=== PATIENT | female | born 1965 | race American Indian/Alaskan Native ===

== ENCOUNTER 2018-02-19 10:18 | Emergency (ER) | payer OTHER ==
[~2018-02-19] VITALS: Ht 160 cm; Wt 127.0 kg
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
--- OUTSIDE RECORDS SUMMARY | ~2018-02-19 | XMS | Clinical Summary ---
Demographics + + + | Address | [address] [place] [address] Rd | | | [place] [address] | + + + | Home Phone | | + + + | Preferred Language | Unknown | + + + | Marital Status | Single | + + + | Presybeterian Affiliation | 1041 | + + + | Race | Unknown | + + + | Ethnic Group | Unknown | + + + Author + + + | Author | [facility] | | | and Abilioana | + + + | Organization | [facility] | | | and Abilioana | + + + | Address | Unknown | + + + | Phone | Unavailable | + + + Support + + + + + | Name | Relationship | Address | Phone | + + + + + | Carlos Pacheco | ECON | [id number] [facility] | | | | | [place] | | | | | [address] | | + + + + + Care Team Providers + +------+ + | Care Mold Shop Supervisor Name | Role | Phone | + [...] Lisbeth | | | | | | /[id number] | | | | | | | | 1 | + +--------+--------+ +--------+--------+--------+ | Imp Hip Fem Hd Bolx Mns3 28mm | Generi | Left: | BIOMET - | | 06/25/ | 12-115 | | - [id number]: Qty: 1 | c | Hip | BIOM | | 2026 | 109 / | | on 12/07/2016 by Don, | | | | | | /[id number] | | Romain Bob MD | | [...] | | | | | | | /[id number] | | | | | | | | 7 | + +--------+--------+ +--------+--------+--------+ | Imp Stem Std Amis 04/28 | | Right: | [employer] | | 06/03/ | 01.18. | | Sz3 - [id number]: | | Hip | INC - MDTA | | 2020 | 133 / | | Qty: 1 on 10/21/2015 by | | | | | | /[id number] | | Romain Ochoa MD | | | | | | 3 | + +--------+--------+ +--------+--------+--------+ | Imp Hip Lnr Dbl Mob Hx 28x50 | | Right: | [employer] | | 05/24/ | 01.26. | | - [id number]: Qty: 1 | | Hip | INC - MDTA | | 2020 | 2850MH | | on 10/21/2015 by Don, | | | | | | C / | | Romain Bob MD | | | | | | /[id number] | | | | | | | | 7 | + +--------+--------+ +--------+--------+--------+ | Imp Hip Fem Hd Ceram 28mm Szs | | Right: | [employer] | | 07/20/ | 06.13. | | - [id number]: Qty: 1 | | Hip | INC - MDTA | | 2020 | 201 / | | on 10/21/2015 by Don, | | | | | | /[id number] | | Romain Bob MD | | | | | | 0 | + +--------+--------+ +--------+--------+--------+ | Liner Dmd Acetabular Shell | | | [employer] | | 04/05/ | [id number] | | Implanted: Qty: 1 on | | | INC - MDTA | | 2020 | 8MB / | | 12/07/2016 by Romain Ochoa | | | | | | /[id number] | | MD Lisbeth | | | | | | 9 | + +--------+--------+ +--------+--------+--------+ | Standard Femoral Stem Full | | Left: | BIOMET | | 10/25/ | [id number] | | Proximal Profile Porous | | Hip | ORTHOPEDICS | | 2026 | / | | Plasma Uncemented Implanted: | | | LLC- [id number] | | | /[id number] | | Qty: 1 on 12/07/2016 by [...] +---------+ | [place]ID [place] | MEDICA | [id number] | Medica | [phone] | | | [place] | | id | [id number] | | | | PLUS | | | | | + +--------+ +--------+ +---------+ | [facility] | IHS | [id number] | Indemn | | | | SERVICE [...] | Self | [birth year] | Work: | [address] | | [place] | [place] | | 1964 | [phone] | [place] | | | [place]anda | | | [phone] Home: | [address] | | | | | | | | | | | | [phone] | | | | | | | [phone] | | + +--------+ +--------+ + + | ERICA CARRILLO | Third | Self | [birth year] | Home: | [address] | | | Libertarian | | 1964 | +- | [place], [place] | | | [place] | | | [address] | [address] | | | ity | | | | | + +--------+ +--------+ + + | [id number] | 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
[~2018-02-19 10:18] MED LIST: ALBUTEROL SULF8.5 GM INH; CYCLOBENZAPRINE5 MG PO; DIAZEPAM5 MG PO; GABAPENTIN300 MG PO; HYDROCODON-ACE1 EAC8 PO; NAPROXEN375 MG PO; OMEPRAZOLE20 MG PO
[2018-02-19] MEDS ORDERED: PHENTERMINE H37.5 MG PO (10:33)
== END 2018-02-19 14:31 | disposition home or self-care (01) ==
LOC: ED 10:18
DX: R10.9 Unspecified abdominal pain (principal); M54.5 Low back pain; J45.909 Unspecified asthma, uncomplicated; Z88.1 Allergy status to other antibiotic agents; Z88.8 Allergy status to other drugs, medicaments and biological substances; Z88.5 Allergy status to narcotic agent; Z79.899 Other long term (current) drug therapy; Z79.891 Long term (current) use of opiate analgesic
CPT/HCPCS: 72100; 72110; 72170; 80053; 81001; 85025; 96374; 99283; J1885

== ENCOUNTER 2020-06-29 10:24 | Emergency (ER) | payer OTHER ==
[~2020-06-29] VITALS: Ht 160 cm; Wt 127.0 kg
[~2020-06-29 10:24] MED LIST changes: +PHENTERMINE H37.5 MG PO
--- OUTSIDE RECORDS SUMMARY | 2020-06-29 10:30 | XMS ---
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 Jimenez has no Care Guidelines for this patient. Juany VISIT COUNT (12 MO.) 1 [facility] TOTAL 1 NOTE: Visits indicate total known visits. ED/C VISIT TRACKING (12 MO.) 06/29/2020 10:27 [facility] [place] TYPE: Emergency COMPLAINT: - LEFT ARM INJURY INPATIENT VISIT TRACKING (12 MO.) No inpatient visits to display in this time frame [id number]
== END 2020-06-29 13:02 | disposition home or self-care (01) ==
LOC: ED 10:24
DX: S63.502A Unspecified sprain of left wrist, initial encounter (principal); S46.912A Strain of unspecified muscle, fascia and tendon at shoulder and upper arm level, left arm, initial encounter; W01.0XXA Fall on same level from slipping, tripping and stumbling without subsequent striking against object, initial encounter; J45.909 Unspecified asthma, uncomplicated; Z88.1 Allergy status to other antibiotic agents; Z88.8 Allergy status to other drugs, medicaments and biological substances; Z88.5 Allergy status to narcotic agent; Z79.899 Other long term (current) drug therapy; Z79.891 Long term (current) use of opiate analgesic
CPT/HCPCS: 73110; 99283-25

== ENCOUNTER 2020-08-01 04:38 | Emergency (ER) | payer OTHER ==
[~2020-08-01] VITALS: Ht 160 cm; Wt 131.5 kg
--- OUTSIDE RECORDS SUMMARY | 2020-08-01 04:40 | XMS ---
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 Care History Medical/Surgical 07/01/2020 [facility] - PATIENT IS [facility] ELIGIBLE, \T\middot;\T\nbsp; PLEASE REFER PATIENT TO [facility] FOR NON EMERGENT MEDICAL NEEDS. \T\middot;\T\nbsp; [facility] CAN SEE PATIENTS SAME DAY FOR APTS IF PATIENT CALLS FIRST THING IN THE MORNING. E.D. VISIT COUNT (12 MO.) 2 [facility] TOTAL 2 NOTE: Visits indicate total known visits. 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
[2020-08-01] MEDS ORDERED: DEEP SEA44 ML NAS (04:57)
--- NOTE | 2020-08-01 13:05 | EKG ---
[facility] [address] [facility] [place], [place] [address] Signed Normal sinus rhythm Incomplete right bundle branch block Cannot rule out Anterior infarct , age undetermined Abnormal ECG No previous ECGs available Confirmed by SKIP ANNE MD ([id number]) on 08/01/2020 1:05:31 PM Electronically Signed By: SKIP ANNE MD 08/01/20 1305 PATIENT NAME: OZZY CARRILLO [place] Electrocardiogram DATE OF : 63 PHYSICIAN: SKIP ANNE MD REPORT #: [id number] REPORT IS CONFIDENTIAL AND NOT TO BE RELEASED WITHOUT AUTHORIZATION
== END 2020-08-01 05:43 | disposition home or self-care (01) ==
LOC: ED 04:38
DX: R07.89 Other chest pain (principal); J45.909 Unspecified asthma, uncomplicated; Z88.1 Allergy status to other antibiotic agents; Z88.8 Allergy status to other drugs, medicaments and biological substances; Z88.5 Allergy status to narcotic agent; Z79.899 Other long term (current) drug therapy; Z79.891 Long term (current) use of opiate analgesic
CPT/HCPCS: 71045; 93005; 93010; 99285-25

== ENCOUNTER 2020-11-26 13:44 | Emergency (ER) | payer OTHER ==
[~2020-11-26] VITALS: Ht 160 cm; Wt 131.5 kg
[~2020-11-26 13:44] MED LIST changes: +DEEP SEA44 ML NAS
--- OUTSIDE RECORDS SUMMARY | 2020-11-26 13:46 | XMS ---
PreManage Notification: OZZY CARRILLO Security Primary Care Md Events No recent Security Events currently on file CRITERIA MET - [facility] CARE PROVIDERS [facility]Center 07/01/2020-[facility] PHONE: [phone] Jimenez has no Care Guidelines for this patient. Care History Medical/Surgical 07/01/2020 [facility] - PATIENT IS [facility] ELIGIBLE, \T\middot;\T\nbsp; PLEASE REFER PATIENT TO [facility] FOR NON EMERGENT MEDICAL NEEDS. \T\middot;\T\nbsp; [facility] CAN SEE PATIENTS SAME DAY FOR APTS IF PATIENT CALLS FIRST THING IN THE MORNING. E.D. VISIT COUNT (12 MO.) [address] [place] [address] TOTAL 3 NOTE: Visits indicate total known visits. 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
[2020-11-26] MEDS ORDERED: LISINOPRIL20 MG PO (13:51)
[2020-11-26] MEDS ORDERED: VITAMIN D3125 MC1 PO (13:51)
[2020-11-26] MEDS ORDERED: ONDANSETRON ODT8 MG PO (16:47)
== END 2020-11-26 17:15 | disposition home or self-care (01) ==
LOC: ED 13:44
DX: K52.9 Noninfective gastroenteritis and colitis, unspecified (principal); J45.909 Unspecified asthma, uncomplicated; Z88.1 Allergy status to other antibiotic agents; Z88.8 Allergy status to other drugs, medicaments and biological substances; Z88.5 Allergy status to narcotic agent; Z79.899 Other long term (current) drug therapy
CPT/HCPCS: 80053; 81001; 85025; 96374; 99284-25; J2405; J7030

== ENCOUNTER 2024-10-03 12:14 | Emergency (ER) | payer OTHER, MEDICARE ==
[~2024-10-03] VITALS: Ht 162.6 cm; Wt 146.5 kg
[~2024-10-03 12:14] MED LIST changes: +CLARITIN10 M2 PO; +LIPITOR20 MG GT; +LISINOPRIL20 MG PO; +METAMUCIL0.4 GM PO; +ONDANSETRON ODT8 MG PO; +SERTRALINE HCL50 MG PO; +VITAMIN D3125 MC1 PO
[2024-10-03 13:14] LABS: BASOPHILS 0.7 % (0.1-1.2); EOSINOPHILS 1.4 % (0.7-5.8); HEMATOCRIT 41.6 % (34.1-44.9); HEMOGLOBIN 13.7 g/dL (11.2-15.7); LYMPHOCYTES 45.8 % (19.3-51.7); MCH 29.5 PG (25.6-32.2); MCHC 32.9 g/dL (32.2-35.5); MCV 89.7 fL (79.4-94.8); MONOCYTES 9.6 % (4.7-12.5); NEUTROPHILS 42.2 % (34.0-71.1); RBC 4.64 M/uL (3.93-5.22)
[2024-10-03 13:19] LABS: BILIRUBIN, URINE NEGATIVE (negative); BLOOD/HGB, URINE NEGATIVE (Negative); KETONE, URINE NEGATIVE (Negative); LEUK ESTERASE, URINE NEGATIVE (negative); NITRITE, URINE NEGATIVE (negative)
[2024-10-03 13:25] LABS: ALBUMIN 3.2 g/dL (3.4-5.0); ALBUMIN/GLOBULIN RATIO 0.67 (1.1-2.4); ANION GAP 11.5 (7-21); BUN/CREATININE RATIO 15.11 (6.0-28.6); CALCIUM 8.8 mg/dL (8.5-10.1); CREATININE, SERUM 0.86 mg/dL (0.55-1.02); POTASSIUM 3.5 mmol/L (3.5-5.1)
[2024-10-03 13:37] LABS: PLATELET COUNT 272 K/uL (182-369)
[2024-10-03 15:20] VITALS: BP 163/90
--- NOTE | 2024-10-04 08:26 | EKG ---
[facility] [address] [facility] [place] [address] Signed Normal sinus rhythm Normal ECG When compared with ECG of 20-DEC-2022 14:07, No significant change was found Confirmed by Jodi Sadler MD ([id number]) on 10/04/2024 8:26:41 AM Electronically Signed By: JODI SADLER MD 10/04/24 0826 PATIENT NAME: OZZY CARRILLO Electrocardiogram DATE OF : 63 PHYSICIAN: JODI SADLER MD REPORT #: [id number] REPORT IS CONFIDENTIAL AND NOT TO BE RELEASED WITHOUT AUTHORIZATION
--- NOTE | 2024-10-04 08:27 | EKG ---
[facility] [address] [facility] [place], [place] [address] Signed Sinus rhythm with marked sinus arrhythmia Otherwise normal ECG When compared with ECG of 03-OCT-2024 13:10, (Unconfirmed) No significant change was found Confirmed by Lonnie Sadler MD ([id number]) on 10/04/2024 8:26:52 AM Electronically Signed By: LONNIE SADLER MD 10/04/24 0827 PATIENT NAME: OZZY CARRILLO [place] Electrocardiogram DATE OF : 63 PHYSICIAN: LONNIE SADLER MD REPORT #: [id number] REPORT IS CONFIDENTIAL AND NOT TO BE RELEASED WITHOUT AUTHORIZATION
== END 2024-10-03 15:20 | disposition home or self-care (01) ==
LOC: ED 12:14
PROVIDERS: Emergency Medicine
DX: R42 Dizziness and giddiness (principal); R11.0 Nausea; J45.909 Unspecified asthma, uncomplicated; Z88.0 Allergy status to penicillin; Z88.1 Allergy status to other antibiotic agents; Z88.8 Allergy status to other drugs, medicaments and biological substances
CPT/HCPCS: 36415; 80053; 81003; 84484; 85025; 85060; 93005; 93010; 99284

== ENCOUNTER 2025-01-17 08:26 | Emergency (ER) | payer OTHER, MEDICARE ==
[~2025-01-17] VITALS: Ht 152.4 cm; Wt 144.8 kg
[2025-01-17 09:58] VITALS: BP 129/68
== END 2025-01-17 09:59 | disposition home or self-care (01) ==
LOC: ED 08:26
DX: S63.511A Sprain of carpal joint of right wrist, initial encounter (principal); S70.01XA Contusion of right hip, initial encounter; J45.909 Unspecified asthma, uncomplicated; Z96.643 Presence of artificial hip joint, bilateral; Z88.1 Allergy status to other antibiotic agents; Z88.5 Allergy status to narcotic agent; Z88.0 Allergy status to penicillin; Z88.8 Allergy status to other drugs, medicaments and biological substances; Z79.899 Other long term (current) drug therapy; W07.XXXA Fall from chair, initial encounter
CPT/HCPCS: 72170; 73110; 99283

== ENCOUNTER 2025-03-19 10:50 | Day surgery (SDC) | payer OTHER ==
[~2025-03-19] VITALS: Ht 160 cm; Wt 149.0 kg
[~2025-03-19 10:50] MED LIST changes: -ALBUTEROL SULF8.5 GM INH; +IBLOOD GLUCOSE TEST STRIP 1 EA TEST VI PRN; +LACTATED RINGER'S 1,000 ML IV SCH; +LIDOCAINE HCL 1% 5 ML SDV INJ ONE; +PROAIR RESPICL90 MCG INH
[2025-03-19 11:13] VITALS: BP 125/73
[2025-03-19] MEDS ORDERED: CEFAZOLIN SODIUM 3 GM in SODIUM CHLORIDE 0.9% 100 ML IV SCH (11:45)
[2025-03-19] MEDS ORDERED: LIDOCAINE HCL 2% 5 ML SDV ONE (11:54)
--- NOTE | 2025-03-19 12:31 | NUR ---
03/19/25 1231 Maye Stafford 1226-PATIENT ARRIVED TO PACU ON 4L NC RR EVEN PLACED ON 2L. PATIENT REACTIVE TO VERBAL STIMULI WILL OPEN EYES ORIENTED TO PACU ABDOMEN SOFT IVF INFUSING. SR HR 70'S.
[2025-03-19] MEDS ORDERED: fentaNYL citrate 100 MCG/2 ML VIAL ONE (12:39)
[2025-03-19] MEDS ORDERED: MIDAZOLAM HCL 5 MG/5 ML VIAL ONE (12:39)
[2025-03-19 13:14] VITALS: BP 145/80
--- NOTE | 2025-03-20 11:15 | OR ---
[facility] [address], [place] [address] Signed DATE OF OPERATION: 03/19/2025 SURGEON: Montserrat Damico MD PREOPERATIVE DIAGNOSES: 1. Persistent burning epigastric pain. 2. Morbid obesity. 3. History of cholecystectomy and appendectomy. 4. History of H pylori. POSTOPERATIVE DIAGNOSIS: Diffuse gastritis with bile in stomach, possible bile gastritis, poor flap valve, but normal esophagus and normal duodenum. PROCEDURE: Esophagogastroduodenoscopy with biopsy. ANESTHESIA: Intravenous sedation, propofol infusion; Robb Quesada, CORE SETTER. INDICATION: This quite morbidly obese 60-year-old [place] woman is a patient of CHRIS Dumont. She is known to me from the past having undergone cholecystectomy and appendectomy. She is referred for consideration of an upper endoscopy as she has "burning stomach." She has been taking PPI medication, which does help somewhat. She has no dysphagia. She self describes a history of ulcer with pain on the right side. She has already undergone cholecystectomy and appendectomy also (2011). She does take Ozempic for weight loss. She is now 324 pounds. She is admitted at this time to undergo upper endoscopy to better characterize the problem. She tells me she had H pylori infection in the past as well. FINDINGS: There was bile in the stomach. There was diffuse gastritis but no sign of ulceration. There was no gastric outlet obstruction. Duodenum was normal. Esophagus was completely normal. The flap valve was marginal. CLOtest (Accutest) for H pylori is equivocal at present. DESCRIPTION OF PROCEDURE: The patient was brought to the endoscopy suite, placed in the lateral decubitus position after full evaluation by the technical report writer. She was given intravenous sedation with Electronically Signed By: MONTSERRAT DAMICO MD 03/20/25 1115 PATIENT NAME: OZZY CARRILLO OPERATIVE REPORT DATE OF : 63 REPORT #: [id number] PHYSICIAN: MONTSERRAT DAMICO MD PCP: JOHNNA SUTTON PAC REPORT IS CONFIDENTIAL AND NOT TO BE RELEASED WITHOUT AUTHORIZATION [facility] [address], [place] [address] Signed propofol infusional technique with full cardiopulmonary monitoring. A bite block was placed. An Olympus video upper endoscope was passed in the hypopharynx. The vocal cords were normal. A plethoric hypopharynx was noted related to her obesity. The scope was easily advanced to the esophagus, throughout its length it was completely normal. Scope was passed to the stomach and immediately noted was a fair amount of bile. This was suctioned free. Rugal folds were normal, however, there was diffuse gastritis noted. Pylorus was normal. Scope was passed through into the duodenum. The duodenum was normal. Biopsies were obtained to assess for celiac disease. Scope was withdrawn and biopsy taken of the antrum for both LUISITO and pathologic testing. Retroflexed view showed an effaced flap valve. No sign of large hiatal hernia proper, however. The scope was withdrawn. The esophageal mucosa examined and completely normal. It was biopsied. The scope was then withdrawn to the midesophagus which allowed for biopsy also. The scope was removed. The patient was taken to the recovery room in good condition. CONCLUDING DIAGNOSIS: Diffuse gastritis and some bile. Review of the Accutest shows it may start to be at this point. We will wait and see which of course would indicate H pylori infection. PLAN: We will prescribe Carafate in addition to the omeprazole 1 g p.o. q.i.d. We will see her back in the office in a month or so. If her H pylori assessment turns to be positive, we will initiate antibiotic therapy of course. Montserrat Damico MD /ROVERTOL /[id number] cc: Johnna Sutton Electronically Signed By: MONTSERRAT DAMICO MD 03/20/25 1115 PATIENT NAME: OZZY CARRILLO OPERATIVE REPORT DATE OF : 63 REPORT #: [id number] PHYSICIAN: MONTSERRAT DAMICO MD PCP: JOHNNA SUTTON PAC REPORT IS CONFIDENTIAL AND NOT TO BE RELEASED WITHOUT AUTHORIZATION [facility] [address] [place] [id number] Signed Copies: JOHNNA SUTTON PAC ~ Electronically Signed By: MONTSERRAT DAMICO MD 03/20/25 1115 PATIENT NAME: OZZY CARRILLO OPERATIVE REPORT DATE OF : 63 REPORT #: [id number] PHYSICIAN: MONTSERRAT DAMICO MD PCP: JOHNNA SUTTON PAC REPORT IS CONFIDENTIAL AND NOT TO BE RELEASED WITHOUT AUTHORIZATION
--- NOTE | 2025-03-25 16:06 | PATH ---
[facility] [address], [place] [address] Signed SPECIMEN(S): A DUODENAL BIOPSY SPECIMEN(S): B ANTRUM BIOPSY SPECIMEN(S): C LOWER ESOPHAGUS BIOPSY SPECIMEN(S): D MIDDLE ESOPHAGUS BIOPSY SPECIMEN SOURCE: A. DUODENAL BIOPSY B. ANTRUM BIOPSY C. LOWER ESOPHAGUS BIOPSY D. MIDDLE ESOPHAGUS BIOPSY CLINICAL HISTORY: Abdominal pain. Post-diffuse gastritis, bile and stomach A-D) biopsy FINAL PATHOLOGIC DIAGNOSIS: A. Duodenal biopsy: - Duodenal mucosa with no significant pathologic abnormalities. - Negative for inflammation, villous blunting or increase in intraepithelial lymphocytes. B. Antrum biopsy - Helicobacter associated chronic gastritis. - Immunohistochemical stain for H. pylori is positive for organisms (valid control). - Negative for intestinal metaplasia. C. Lower esophagus biopsy - Esophageal squamous mucosa with no significant pathologic abnormalities. - Negative for increase in eosinophils. - Negative for goblet cell metaplasia. D. Middle esophagus biopsy - Esophageal squamous mucosa with no significant pathologic abnormalities. - Negative for increase in eosinophils. - Negative for goblet cell metaplasia. NA MICROSCOPIC EXAMINATION: Histologic sections of all submitted blocks are examined by light microscopy. These findings, together with the gross examination, support the pathologic diagnosis. GROSS DESCRIPTION: PATIENT NAME: OZZY CARRILLO PATHOLOGY DATE OF : 63 REPORT #: [id number] PHYSICIAN: MYA PATHOLOGY PCP: KASH SUTTON PAC REPORT IS CONFIDENTIAL AND NOT TO BE RELEASED WITHOUT AUTHORIZATION [facility] [address] [facility] [place] [place] [address] Signed A. The specimen, labeled and designated "[place], duodenal biopsy," is received in formalin and consists of one anderson soft tissue fragment, 0.4 cm. Entirely submitted in (A1). B. The specimen, labeled and designated "[place], antrum biopsy," is received in formalin and consists of one anderson soft tissue fragment, 0.2 cm. Entirely submitted in (B1). C. The specimen, labeled and designated "[place], lower esophagus biopsy," is received in formalin and consists of one anderson soft tissue fragment, 0.5 cm. Entirely submitted in (C1). D. The specimen, labeled and designated "[place], middle esophagus biopsy," is received in formalin and consists of one anderson soft tissue fragment, 0.4 cm. Entirely submitted in (D1). AB (under the direct supervision of a pathologist) The Gross Description was prepared using a voice recognition system. The report was reviewed for accuracy; however, sound-alike word errors, addition and/or deletions may occur. If there is any question about this report, please contact Client Services. ADDITIONAL NOTES: Immunohistochemical and/or in situ hybridization studies if performed in this case included appropriate positive controls that reacted as expected. This test was developed and its performance characteristics determined by [facility]. It has not been cleared or approved by the U.S. Food and Drug Administration. The FDA has determined that such clearance or approval is not necessary. This test is used for clinical purposes. It should not be regarded as investigational or for research. [facility] is certified under the Clinical Laboratory Improvement Amendments of 1988 (CLIA) as qualified to perform high complexity clinical laboratory testing. PERFORMING LABORATORY: Technical component was performed by [facility], [address] [place] [id number] (CLIA# [id number]). Professional interpretation was performed by [facility], [address] [place] [id number] (CLIA#: [id number]). Diagnostician: Leni Fernandez MD Pathologist Electronically Signed 03/25/2025 PATIENT NAME: OZZY CARRILLO PATHOLOGY DATE OF : 63 REPORT #: [id number] PHYSICIAN: MYA PATHOLOGY PCP: KASH SUTTON PAC REPORT IS CONFIDENTIAL AND NOT TO BE RELEASED WITHOUT AUTHORIZATION [address] [address] Signed Copies: ~ PATIENT NAME: OZZY CARRILLO PATHOLOGY DATE OF : 63 REPORT #: [id number] PHYSICIAN: MYA PATHOLOGY PCP: KASH SUTTON PAC REPORT IS CONFIDENTIAL AND NOT TO BE RELEASED WITHOUT AUTHORIZATION
== END 2025-03-19 13:25 | disposition home or self-care (01) ==
LOC: OPS 10:50 → DS 10:50 → OPS 12:00
PROVIDERS: ATTEND Surgery
PROC: 0DB58ZX Excision of Esophagus, Via Natural or Artificial Opening Endoscopic, Diagnostic (ICD-10-PCS; 2025-03-19)
PROC: 0DB68ZX Excision of Stomach, Via Natural or Artificial Opening Endoscopic, Diagnostic (ICD-10-PCS; 2025-03-19)
PROC: 0DB98ZX Excision of Duodenum, Via Natural or Artificial Opening Endoscopic, Diagnostic (ICD-10-PCS; principal; 2025-03-19 12:30)
DX: K29.50 Unspecified chronic gastritis without bleeding (principal); B96.81 Helicobacter pylori [H. pylori] as the cause of diseases classified elsewhere; J45.909 Unspecified asthma, uncomplicated; I10 Essential (primary) hypertension; J68.3 Other acute and subacute respiratory conditions due to chemicals, gases, fumes and vapors; F11.90 Opioid use, unspecified, uncomplicated; E66.01 Morbid (severe) obesity due to excess calories; Z68.43 Body mass index [BMI] 50.0-59.9, adult; Z90.49 Acquired absence of other specified parts of digestive tract; Z88.8 Allergy status to other drugs, medicaments and biological substances; Z79.899 Other long term (current) drug therapy
CPT/HCPCS: 00731; J0688; J2003; J2250; J2704; J3010; J7121